=== PATIENT | female | born 1960 | race Caucasian/White ===

== ENCOUNTER → 2017-08-26 15:49 | Outpatient (CLI) | payer OTHER, SELFPAY ==
--- NOTE | 2017-08-26 15:56 | RAD_ITS ---
STUDY: X-RAY CHEST REASON FOR EXAM: Female, 57 years old. History of value fever. Abnormal breath sounds. TECHNIQUE: AP and lateral views of the chest. COMPARISON: Prior comparison studies are not available for review at this time. FINDINGS: There is a lucency in the left perihilar region measuring about 3.6 cm which could represent bulla or cavitary lesion. The lungs are otherwise clear. There is no demonstrated pleural abnormality. Normal size heart. Normal mediastinum and marcel. Normal visualized pulmonary arteries. Normal visualized aortic arch and descending thoracic aorta. There is minimal dextroscoliosis of the thoracic spine. Normal visualized ribs, clavicles, and shoulders. There is no demonstrated abnormality of the visualized soft tissue structures of the upper abdomen. RAD/Chest PA and Lateral IMPRESSION: Questionable left perihilar bulla or cavitary lesion. Comparison with previous examinations is recommended. Otherwise CT scan of the chest might be of further value. Electronically Signed: Freddy Domínguez MD at 14:22 EDT Tel , Service support ,
== END ==
PROVIDERS: Family Provider Family Medicine; PCP Family Medicine; Visit Provider Family Medicine
DX: J40 Bronchitis, not specified as acute or chronic (principal); Z86.19 Personal history of other infectious and parasitic diseases
CPT/HCPCS: 71046

== ENCOUNTER → 2017-10-19 16:29 | Outpatient (CLI) | payer OTHER, SELFPAY ==
--- NOTE | 2017-10-19 16:33 | CT_ITS ---
STUDY: CT CHEST WITH CONTRAST REASON FOR EXAM: Female, 57 years old. Cavitary lesion on chest radiograph RADIATION DOSAGE (If Supplied By Facility): CTDIvol = ( 7.72 ) mGy, DLP = ( 192.60 ) mGycm TECHNIQUE: Transaxial imaging was performed following intravenous administration of 100ML ml of Isovue 300 contrast material. Individualized dose optimization techniques were used for this CT. COMPARISON: None. FINDINGS: : TRACHEA, THYROID, ESOPHAGUS: No tracheomalacia,stricture or wall thickening. Thyroid and esophagus are normal CARDIOVASCULAR SYSTEM:The thoracic aorta is normal with no aneurysm, dissection or developmental anomalies. The pulmonary trunk and the left and right pulmonary arteries and their lobar and segmental branches do not show any abnormal and persistent filling defects in them. There is therefore no evidence of pulmonary embolism. The heart is normal. There are no venous anomalies JUANCARLOS AND LYMPH NODES: No hilar masses and no mediastinal, hilar, axillary or supraclavicular adenopathy LUNGS, LOW-ATTENUATION: No traction bronchiectasis, honeycombing,emphysema, lung cysts or cavitations LUNGS, HIGH ATTENUATION: No masses, ground glass opacities/consolidations or increased interstitial markings. A 1.2 cm nodule in the right lung base just above the right hemidiaphragm. LUNGS, MOSAIC/CRAZY PAVING: Not evident PLEURA AND CHEST WALL: No plural effusions, pneumothoraces,rib fractures or any osteolytic/osteoblastic changes . The soft tissue chest wall including the breasts are normal UPPER ABDOMEN: Unremarkable .. CT/Chest WITH Contrast IMPRESSION: The study is within normal limits with no cavitary lesions or lung cysts in the lungs especially the left side a 1.2 cm small nodule in the right lung base Electronically Signed: Tyrell Yung, at 6:55 EDT Tel , Service support ,
== END ==
PROVIDERS: Family Provider Family Medicine; PCP Family Medicine; Visit Provider Family Medicine
DX: R93.8 Abnormal findings on diagnostic imaging of other specified body structures (principal); Z86.19 Personal history of other infectious and parasitic diseases
CPT/HCPCS: 71260; Q9967

== ENCOUNTER → 2018-11-28 | Outpatient (CLI) | payer OTHER, SELFPAY ==
[2018-11-28 12:04] LABS: Absolute Lymphocyte Count 1.64 X10^3/uL (0.83-4.51); Absolute Neutrophil Count 2.2 X10^3/uL (2.0-7.7); Basophil# 0.05 X10^3/uL; Basophil% 1.1 % (0-1); Eosinophil# 0.11 X10^3/uL; Eosinophils% 2.5 % (0-5); Hemoglobin 12.7 g/dL (12.0-15.0); Lymphocyte # 1.64 X10^3/ul (4.0); Lymphocyte % 37.6 % (19-41); Mean Corpuscular Volume 90.5 fL (81-99); Mean Platelet Vol. 11.7 fl (6.2-12.0); Monocyte# 0.33 X10^3/uL; Monocyte% 7.6 % (0-10); NRBC Flagged by Analyzer 0 % (0-5); Neutrophil # 2.22 X10^3/uL (2.7-7.7); Platelet Count 187 K/mm3 (150-450); RBC Distribution Width CV 13.6 % (11.6-14.6); RBC Distribution Width SD 45.3 fl (35.1-43.9); Red Blood Count 4.53 M/mm3 (4.2-5.4); White Blood Count 4.4 K/mm3 (4.4-11.0)
[2018-11-28 12:20] LABS: Vitamin D,25 Hydroxy 15.3 ng/mL (29.95-100.01)
[2018-11-28 12:33] LABS: AST(SGOT) 21 U/L (15-37); Alanine Aminotransfer ALT/SGPT 23 U/L (13-56); Albumin, Serum 3.6 g/dL (3.2-5.0); Alkaline Phosphatase 96 U/L (45-117); Anion Gap 7 (5-15); BUN 13 mg/dL (7-18); BUN/Creat Ratio 20.9 RATIO (10-20); Calcium,Total 8.5 mg/dL (8.5-10.1); Chloride 110 mmol/L (98-107); Creatinine, Serum 0.62 mg/dL (0.55-1.02); EST Glomerular Filtration Rate 105 mL/min (>60); Est Glom Filt Rate - Afr Amer 127 mL/min (>60); Globulin 3.6 g/dL (2.2-4.2); Glucose 78 mg/dL (74-106); Potassium 3.8 mmol/L (3.5-5.1); Protein, Total 7.2 g/dL (6.4-8.2); Sodium Level 143 mmol/L (136-145); T4 Free Direct 1.03 ng/dL (0.76-1.46); Thyroid Stim Hormone (TSH) 1.43 uIU/mL (0.358-3.74)
== END | disposition home or self-care (01) ==
LOC: BFHLAB 10:12
PROVIDERS: Family Provider Family Medicine; PCP Family Medicine; Visit Provider Family Medicine
DX: M81.0 Age-related osteoporosis without current pathological fracture (principal); R91.1 Solitary pulmonary nodule
CPT/HCPCS: 36415; 80053; 82306; 84439; 84443; 85025

== ENCOUNTER → 2018-12-05 | Outpatient (CLI) | payer OTHER, SELFPAY ==
--- NOTE | 2018-12-05 10:59 | BD_ITS ---
STUDY: DUAL ENERGY X-RAY ABSORPTIOMETRY / DXA REASON FOR EXAM: Female, 58 years old. Early menopause. Loss of height. TECHNIQUE: Bone Mineral Density (BMD) measurements of lumbar spine and bilateral hips were obtained. COMPARISON: Comparison is made with prior examination dated June 30, 2016. FINDINGS: Lumbar Spine (L1-L4): g/cm2 (0.844) / T-score (-2.8) / Z-score (-1.8) Findings are suggestive of osteoporosis with a high fracture risk. Left Femur Total: g/cm2 (0.807) / T-score (-1.6) / Z-score (-0.8) Left Femoral Neck: g/cm2 (0.810) / T-score (-1.6) / Z-score (-0.5) Right Femur Total: g/cm2 (0.749) / T-score (-2.1) / Z-score (-1.3) Right Femoral Neck: g/cm2 (0.794) / T-score (-1.8) / Z-score (-0.6) The T-Scores on the most recent prior examination were: Lumbar Spine (L1-L4): There has been improvement of bone density since the previous examination. Left Femur Total: which represents a worsening of 5.3%. Right Femur Total: which represents a worsening of 6.8%. BD/Dexa Bone Density Study IMPRESSION: The patient is considered osteoporotic as outlined below according to World Kapil Organization (WHO) criteria with a high fracture risk. There has been worsening of bone density since the previous examination. Reference Information: The T-score is the number of standard deviations above or below the standard which is normal for young adults at their peak bone mineral density. The World Health Organization (WHO) interprets the T-scores as follows: Above -1 Normal bone density Between -1 and -2.5 Osteopenia Equal to / or below -2.5 Osteoporosis As a practical clinical guideline, osteopenia may be graded as follows: Mild -1 through -1.5 Moderate -1.6 through -2.0 Severe -2.1 through -2.4 The Z-score is the number of standard deviations above or below age-matched controls. A Z-score of less than -1.5 would be considered abnormal. References: 1. NIH Osteoporosis and Related Bone Diseases http://www.osteo.org 2. International Society for Clinical Densitometry http://www.iscd.org 3. National Osteoporosis Foundation http://www.nof.org Electronically Signed: Henry Davies, at 14:05 EDT , Service support ,
== END | disposition home or self-care (01) ==
PROVIDERS: Family Provider Family Medicine; PCP Family Medicine; Referring Provider Family Medicine; Visit Provider Family Medicine
DX: M81.0 Age-related osteoporosis without current pathological fracture (principal)
CPT/HCPCS: 77080

== ENCOUNTER → 2018-12-14 15:28 | Outpatient (CLI) | payer OTHER, SELFPAY ==
--- NOTE | 2018-12-14 15:32 | CT_ITS ---
STUDY: CT CHEST WITH CONTRAST REASON FOR EXAM: Female, 58 years old. Follow-up lung nodule history of [place] fever RADIATION DOSAGE (If Supplied By Facility): CTDIvol = ( 8.06 ) mGy, DLP = ( 220.35 ) mGycm TECHNIQUE: Transaxial imaging was performed following intravenous administration of 100mL IV Isovue 300. Multiplanar coronal and sagittal images were reformatted. Individualized dose optimization techniques were used for this CT. COMPARISON: CT chest October 09, 2017 FINDINGS: In the right lung base there is a stable circumscribed nodule measuring approximately 1.1 x 1.1 cm. This appears nodular on the axial views just above the right hemidiaphragm but appears more plaque-like or-like pleural thickening on the coronal views. There is no new visualize focal consolidation or pleural effusion. There is no demonstrated pleural abnormality. There is mild cardiac enlargement. Normal mediastinum. Normal hilar regions. Normal enhanced pulmonary arteries. Normal aorta arch and descending thoracic aorta. Normal osseous structures. There is no demonstrated abnormality of the visualized upper abdomen. CT/Chest WITH Contrast IMPRESSION: Stable right lung base pleural thickening and/or small nodule. Recommend follow-up based on clinical grounds or in 12 months to ensure stability. No evidence of acute focal infiltrate. Mild cardiomegaly. Electronically Signed: Princess Mitchell MD at 12:51 EDT Tel , Service support ,
== END ==
PROVIDERS: Family Provider Family Medicine; PCP Family Medicine; Referring Provider Family Medicine; Visit Provider Family Medicine
DX: R91.1 Solitary pulmonary nodule (principal)
CPT/HCPCS: 71260; Q9967

== ENCOUNTER → 2019-09-03 11:03 | Outpatient (CLI) | payer OTHER, SELFPAY ==
[2019-09-03 11:01] VITALS: BMI 23.1
--- NOTE | 2019-09-03 11:04 | RAD_ITS ---
STUDY: X-RAY - LEFT WRIST REASON FOR EXAM: Female, 59 years old. FALL. PAIN AND BRUISING TECHNIQUE: 3 view(s) of the wrist were obtained. COMPARISON: None. FINDINGS: Normal visualized distal radius and ulna. Normal radiocarpal articulation. Normal distal radioulnar articulation. Normal carpal bones. Normal carpal articulations. Normal carpometacarpal articulation of the thumb. Normal second through fifth carpometacarpal articulations. Normal visualized metacarpal bones. Soft tissue swelling. RAD/Wrist min 3 Views IMPRESSION: Soft tissue swelling. Electronically Signed: Henry Davies, at 11:30 EDT , Service support ,
== END ==
PROVIDERS: PCP Family Medicine; Referring Provider Physician Assistant Surgical; Visit Provider Physician Assistant Surgical
DX: S66.912A Strain of unspecified muscle, fascia and tendon at wrist and hand level, left hand, initial encounter (principal); X58.XXXA Exposure to other specified factors, initial encounter; Y93.9 Activity, unspecified; Y92.9 Unspecified place or not applicable; Y99.9 Unspecified external cause status
CPT/HCPCS: 73110

== ENCOUNTER → 2019-09-20 08:32 | Outpatient (CLI) | payer OTHER, SELFPAY ==
[2019-09-20 08:30] VITALS: BMI 23.1
--- NOTE | 2019-09-20 08:33 | RAD_ITS ---
STUDY: X-RAY - LEFT WRIST REASON FOR EXAM: Female, 59 years old. FOLLOW UP. STILL HAVING MEDIAL PAIN TECHNIQUE: 3 view(s) of the wrist were obtained. COMPARISON: None. FINDINGS: Normal visualized distal radius and ulna. Normal radiocarpal articulation. Normal distal radioulnar articulation. Normal carpal bones. Normal carpal articulations. Normal carpometacarpal articulation of the thumb. Normal second through fifth carpometacarpal articulations. Normal visualized metacarpal bones. The soft tissue structures are unremarkable. There is no demonstrated acute fracture. RAD/Wrist min 3 Views IMPRESSION: Continued negative x-ray examination of the wrist. Electronically Signed: Roel Fraser MD at 16:55 EDT , Service support ,
== END ==
PROVIDERS: PCP Family Medicine; Referring Provider Physician Assistant; Visit Provider Physician Assistant
DX: S66.912A Strain of unspecified muscle, fascia and tendon at wrist and hand level, left hand, initial encounter (principal)
CPT/HCPCS: 73110

== ENCOUNTER → 2020-08-11 | Outpatient (CLI) | payer BC, SELFPAY ==
[2019-10-04 08:07] VITALS: BMI 23.1
== END | disposition home or self-care (01) ==
PROVIDERS: PCP Family Medicine; Visit Provider Family Medicine
DX: R32 Unspecified urinary incontinence (principal)
CPT/HCPCS: 87086; 87088

== ENCOUNTER 2020-09-03 11:49 | Emergency (ER) | payer BC, SELFPAY ==
[2019-10-04 08:07] VITALS: BMI 23.1
[2020-09-03 11:50] VITALS: BP 159/91; PULSE 71; RESP 16; TEMP 36.4; O2SAT 97; BMI 23.6
[2020-09-03 12:04] VITALS: O2SAT 97
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
[2020-09-03] MEDS: Ibuprofen 600 MG Tablet PO (12:21)
[2020-09-03 13:19] VITALS: BP 158/79; PULSE 88; RESP 15; O2SAT 98
== END 2020-09-03 13:20 | disposition home or self-care (01) ==
PROVIDERS: Emergency Provider Emergency Medicine; PCP Family Medicine
DX: S40.022A Contusion of left upper arm, initial encounter (principal); S40.021A Contusion of right upper arm, initial encounter; S90.112A Contusion of left great toe without damage to nail, initial encounter; M54.6 Pain in thoracic spine; R07.81 Pleurodynia; V89.2XXA Person injured in unspecified motor-vehicle accident, traffic, initial encounter; Y93.89 Activity, other specified; Y92.410 Unspecified street and highway as the place of occurrence of the external cause; Y99.9 Unspecified external cause status; M19.90 Unspecified osteoarthritis, unspecified site; Z79.899 Other long term (current) drug therapy
CPT/HCPCS: 71046; 73630; 99283

== ENCOUNTER → 2020-09-12 10:57 | Outpatient (CLI) | payer BC, SELFPAY ==
[2020-09-03 11:50] VITALS: BMI 23.6
--- NOTE | 2020-09-12 11:01 | RAD_ITS ---
STUDY: X-RAY - THORACIC SPINE REASON FOR EXAM: Female, 60 years old. PAIN TECHNIQUE: 3 view(s) of the thoracic spine were obtained. COMPARISON: None. FINDINGS: Normal kyphosis of the thoracic spine. There is no substantial scoliosis. Normal thoracic vertebrae and endplates. Normal disc space heights. The soft tissue structures are unremarkable. RAD/Thoracic Spine 3 Views IMPRESSION: Normal x-ray examination of the thoracic spine. Electronically Signed: Jose De Souza MD at 12:32 EDT Tel , Service support ,
--- NOTE | 2020-09-12 11:01 | RAD_ITS ---
STUDY: X-RAY - UNILATERAL RIBS ( LEFT ) WITH CHEST REASON FOR EXAM: Female, 60 years old. PAIN TECHNIQUE - RIBS: 4 view(s) of the ribs. TECHNIQUE - CHEST: Single PA view of the chest. COMPARISON: 09/03/2020 FINDINGS - RIBS: Normal visualized ribs without a demonstrated fracture. FINDINGS - CHEST: The lungs are clear and expanded. There is no demonstrated pleural abnormality. Normal size heart. Normal mediastinum and marcel. Normal visualized pulmonary arteries. Normal visualized aortic arch and descending thoracic aorta. Normal visualized thoracic spine. Normal visualized ribs, clavicles, and shoulders. There is no demonstrated abnormality of the visualized soft tissue structures of the upper abdomen. RAD/Ribs Uni Min 3V w/PA Chest IMPRESSION: RIBS: Normal x-ray examination of the ribs. CHEST: Normal x-ray examination of the chest. Electronically Signed: Jose De Souza MD at 13:44 EDT Tel , Service support ,
--- NOTE | 2020-09-12 11:02 | RAD_ITS ---
STUDY: X-RAY - LEFT FOOT CLINICAL: Female, 60 years old. PAIN TECHNIQUE: 3 view(s) of the foot. COMPARISON: 09/03/2020 FINDINGS: Normal talus, calcaneus, and tarsal bones. Tiny plantar calcaneal enthesophyte. Normal visualized subtalar, talonavicular, calcaneocuboid, tarsal and tarsometatarsal articulations. Normal metatarsi. Normal metatarsophalangeal joint of the great toe. Normal tibial and fibular sesamoid bones. Normal interphalangeal joint of the great toe. Normal phalanges of the great toe. Normal second through fifth metatarsophalangeal joints. Normal interphalangeal joints and phalanges of the lesser toes. Calcification of the distal Achilles tendon suggestive of insertional Achilles tendinitis. RAD/Foot min 3 Views IMPRESSION: 1. No acute fracture or dislocation. 2. Suspect insertional Achilles tendinitis. Electronically Signed: Jose De Souza MD at 11:35 EDT Tel , Service support ,
== END ==
PROVIDERS: PCP Family Medicine; Referring Provider Family Medicine; Visit Provider Family Medicine
DX: M79.672 Pain in left foot (principal); R07.81 Pleurodynia
CPT/HCPCS: 71101; 72072; 73630

== ENCOUNTER → 2022-11-01 | Outpatient (CLI) | payer OTHER, SELFPAY ==
[2022-11-01 12:21] LABS: Absolute Lymphocyte Count 1.66 X10^3/uL (0.83-4.51); Absolute Neutrophil Count 2.2 X10^3/uL (2.0-7.7); Basophil# 0.03 X10^3/uL; Basophil% 0.7 % (0-1); Eosinophil# 0.11 X10^3/uL; Eosinophils% 2.6 % (0-5); Hematocrit 45.6 % (37-47); Hemoglobin 13.9 g/dL (12.0-15.0); Lymphocyte # 1.66 X10^3/ul (0.83-4.51); Mean Corp Hgb Conc 30.5 g/dL (32-36); Mean Corpuscular Hgb 28.4 pg (27.0-32.0); Mean Corpuscular Volume 93.1 fL (81-99); Mean Platelet Vol. 12.2 fl (6.2-12.0); Monocyte# 0.29 X10^3/uL; Monocyte% 6.8 % (0-10); NRBC Flagged by Analyzer 0 % (0-5); Neutrophil # 2.16 X10^3/uL (2.7-7.7); Neutrophil % 50.7 % (47-70); Platelet Count 213 K/mm3 (150-450); RBC Distribution Width CV 13.4 % (11.6-14.6); RBC Distribution Width SD 45.6 fl (35.1-43.9); White Blood Count 4.3 K/mm3 (4.4-11.0)
[2022-11-01 13:03] LABS: Vitamin D,25 Hydroxy 19.2 ng/mL
[2022-11-01 14:44] LABS: ALB/GLOB Ratio 0.9 RATIO (0.9-2.4); AST(SGOT) 18 U/L (15-37); Alanine Aminotransfer ALT/SGPT 18 U/L (13-56); Albumin, Serum 3.7 g/dL (3.2-5.0); Alkaline Phosphatase 92 U/L (45-117); Anion Gap 5 (5-15); BUN 12 mg/dL (7-18); BUN/Creat Ratio 20.2 RATIO (10-20); Chloride 108 mmol/L (98-107); Cholesterol 194 mg/dL (200); Creatinine, Serum 0.59 mg/dL (0.55-1.02); EST Glomerular Filtration Rate 109 mL/min (>60); Est Glom Filt Rate - Afr Amer 132 mL/min (>60); Globulin 3.9 g/dL (2.2-4.2); Glucose 88 mg/dL (74-106); High Density Lipoprotein 80 mg/dL; Potassium 3.5 mmol/L (3.5-5.1); Protein, Total 7.6 g/dL (6.4-8.2); Sodium Level 139 mmol/L (136-145); Thyroid Stim Hormone (TSH) 1.47 uIU/mL (0.358-3.74); Triglycerides 74 mg/dL; Very Low Density Lipoprotein 15 mg/dL (5-40)
== END | disposition home or self-care (01) ==
PROVIDERS: PCP Family Medicine; Visit Provider Family Medicine
DX: Z00.00 Encounter for general adult medical examination without abnormal findings (principal); M81.0 Age-related osteoporosis without current pathological fracture
CPT/HCPCS: 36415; 80053; 80061; 82306; 84443; 85025

== ENCOUNTER → 2022-11-11 | Outpatient (CLI) | payer OTHER, SELFPAY ==
--- NOTE | 2022-11-11 14:22 | BI_ITS ---
MAMMOGRAPHY - BILATERAL SCREENING REASON FOR EXAM: Female, 62 years old. Routine annual screening examination. PERTINENT HISTORY: Non-contributory. TECHNIQUE: Digital bilateral breast mir (3D mammographic acquisition) in the CC and MLO projections. 2-D mediolateral oblique (MLO) and craniocaudad (CC) views of both breasts were obtained. CAD: Full Field Digital Mammography with Computer Added Detection was performed. COMPARISON: Comparison is made with prior study dated April 29, 2016. FINDINGS: Breast Composition: The breasts are heterogeneously dense, which may obscure small masses. There are no dominant masses or suspicious calcifications. No other significant abnormalities are identified. There has been no significant change since the prior study. BI/SCRN MAMM (CAD)W/MIR BILAT IMPRESSION: Stable bilateral screening mammogram. Yearly follow-up mammogram recommended. (A) ASSESSMENT CATEGORY: BIRADS Category 1: Negative. A letter regarding these results will be sent to the patient by the facility within 30 days. Approximately 10% of breast cancers are not detected by mammography. A normal mammogram should not delay biopsy of a clinically suspicious abnormality. [id number] Electronically Signed: Henry Davies MD at 15:33 EDT ,
--- NOTE | 2022-11-11 14:27 | BD_ITS ---
STUDY: DUAL ENERGY X-RAY ABSORPTIOMETRY / DXA REASON FOR EXAM: Female, 62 years old. 733.00OsteoporosisBONE DENSITY REASON FOR EXAM TECHNIQUE: Bone Mineral Density (BMD) measurements of lumbar spine and bilateral hips were obtained. COMPARISON: Comparison is made with prior study December 05, 2018. FINDINGS: Lumbar Spine (L1-L4): g/cm2 (0.743) / T-score (-2.8) / Z-score (-1.2) Findings are suggestive of osteoporosis with a high fracture risk. Left Femur Total: g/cm2 (0.759) / T-score (-1.5) / Z-score (-0.5) Left Femoral Neck: g/cm2 (0.657) / T-score (-1.7) / Z-score (-0.4) Right Femur Total: g/cm2 (0.712) / T-score (-1.9) / Z-score (-0.8) Right Femoral Neck: g/cm2 (0.666) / T-score (-1.7) / Z-score (-0.3) The T-Scores on the most recent prior examination were: Lumbar Spine (L1-L4): There has been improvement of bone density since the previous examination. Left Femur Total: which represents an improvement of 1.6%. Right Femur Total: which represents an improvement of 3.1%. BD/Dexa Bone Density Study IMPRESSION: The patient is considered osteoporotic as outlined below according to World Kapil Organization (WHO) criteria with a high fracture risk. There has been improvement of bone density since the previous examination. Reference Information: The T-score is the number of standard deviations above or below the standard which is normal for young adults at their peak bone mineral density. The World Health Organization (WHO) interprets the T-scores as follows: Above -1 Normal bone density Between -1 and -2.5 Osteopenia Equal to / or below -2.5 Osteoporosis As a practical clinical guideline, osteopenia may be graded as follows: Mild -1 through -1.5 Moderate -1.6 through -2.0 Severe -2.1 through -2.4 The Z-score is the number of standard deviations above or below age-matched controls. A Z-score of less than -1.5 would be considered abnormal. References: 1. NIH Osteoporosis and Related Bone Diseases www osteo.org 2. International Society for Clinical Densitometry www iscd.org 3. National Osteoporosis Foundation www nof.org Electronically Signed: Henry Davies MD at 9:31 EDT ,
== END | disposition home or self-care (01) ==
PROVIDERS: PCP Family Medicine; Referring Provider Family Medicine; Visit Provider Family Medicine
DX: Z12.31 Encounter for screening mammogram for malignant neoplasm of breast (principal); M81.0 Age-related osteoporosis without current pathological fracture
CPT/HCPCS: 77063; 77067; 77080

== ENCOUNTER → 2023-12-13 | Outpatient (CLI) | payer OTHER, SELFPAY | END | disposition home or self-care (01) | LOC: MFPLAB 16:18 | PROVIDERS: PCP Family Medicine; Visit Provider Family Medicine | DX: R39.9 Unspecified symptoms and signs involving the genitourinary system (principal) | CPT/HCPCS: 87086; 87088; 87186 ==

== ENCOUNTER → 2023-12-15 | Outpatient (CLI) | payer OTHER, SELFPAY ==
[2023-12-15 10:05] LABS: Absolute Lymphocyte Count 1.79 X10^3/uL (0.83-4.51); Absolute Neutrophil Count 1.7 X10^3/uL (2.0-7.7); Basophil# 0.03 X10^3/uL; Basophil% 0.7 % (0-1); Eosinophil# 0.22 X10^3/uL; Eosinophils% 5.4 % (0-5); Hematocrit 41.6 % (37-47); Hemoglobin 12.6 g/dL (12.0-15.0); Lymphocyte # 1.79 X10^3/ul (0.83-4.51); Lymphocyte % 43.7 % (19-41); Mean Corp Hgb Conc 30.3 g/dL (32-36); Mean Corpuscular Hgb 27.9 pg (27.0-32.0); Mean Platelet Vol. 11.9 fl (6.2-12.0); Monocyte# 0.37 X10^3/uL; NRBC Flagged by Analyzer 0 % (0-5); Neutrophil # 1.68 X10^3/uL (2.7-7.7); Platelet Count 243 K/mm3 (150-450); RBC Distribution Width CV 13.8 % (11.6-14.6); RBC Distribution Width SD 46.7 fl (35.1-43.9); Red Blood Count 4.52 M/mm3 (4.2-5.4); White Blood Count 4.1 K/mm3 (4.4-11.0)
[2023-12-15 10:51] LABS: ALB/GLOB Ratio 0.9 RATIO (0.9-2.4); AST(SGOT) 18 U/L (15-37); Alanine Aminotransfer ALT/SGPT 22 U/L (13-56); Albumin, Serum 3.4 g/dL (3.2-5.0); Alkaline Phosphatase 81 U/L (45-117); Anion Gap 4 (5-15); BUN 11 mg/dL (7-18); BUN/Creat Ratio 20.2 RATIO (10-20); Calcium,Total 9.7 mg/dL (8.5-10.1); Chloride 108 mmol/L (98-107); Creatinine, Serum 0.54 mg/dL (0.55-1.02); EST Glomerular Filtration Rate 120 mL/min (>60); Est Glom Filt Rate - Afr Amer 145 mL/min (>60); Globulin 3.7 g/dL (2.2-4.2); Glucose 97 mg/dL (74-106); Potassium 3.7 mmol/L (3.5-5.1); Protein, Total 7.1 g/dL (6.4-8.2); Sodium Level 140 mmol/L (136-145)
== END | disposition home or self-care (01) ==
LOC: MFPLAB 08:22
PROVIDERS: PCP Family Medicine; Visit Provider Family Medicine
DX: E55.9 Vitamin D deficiency, unspecified (principal); J45.20 Mild intermittent asthma, uncomplicated
CPT/HCPCS: 36415; 80053; 82306; 85025

== ENCOUNTER → 2023-12-30 | Outpatient (CLI) | payer OTHER, SELFPAY | END | disposition home or self-care (01) | LOC: MFPLAB 16:04 | PROVIDERS: PCP Family Medicine; Visit Provider Family Medicine | DX: R39.9 Unspecified symptoms and signs involving the genitourinary system (principal) | CPT/HCPCS: 87086; 87088 ==

== ENCOUNTER → 2024-03-26 | Outpatient (CLI) | payer OTHER, SELFPAY ==
--- NOTE | 2024-03-26 17:18 | US_ITS ---
STUDY: RENAL ULTRASOUND - COMPLETE REASON FOR EXAM: Female, 64 years old. UTI TECHNIQUE: Ultrasound evaluation of the kidneys was performed with real-time and static roland-scale imaging. COMPARISON: None. FINDINGS: RIGHT KIDNEY: Normal location of the right kidney, which is normal in size. The right kidney measures 10.7 cm. There is a normal cortex of the right kidney. The renal cortex measures 0.8 cm. There is no right renal mass or cyst. There are no right renal calculi. There is mild hydronephrosis of the right kidney. DISTAL RIGHT URETER: There is non-visualization of the distal right ureter. There is no demonstrated right ureterovesical junction calculus. There is a visualized right ureteral jet. LEFT KIDNEY: Normal location of the left kidney, which is normal in size. The left kidney measures 10.2 cm. There is a normal cortex of the left kidney. The renal cortex measures 0.8 cm. There is no left renal mass or cyst. There are no left renal calculi. There is no left hydronephrosis. DISTAL LEFT URETER: There is non-visualization of the distal left ureter. There is no demonstrated left ureterovesical junction calculus. There is a visualized left ureteral jet. BLADDER: The distended urinary bladder has a volume of 35 ml. The empty urinary bladder has a volume of 6 ml. There is a normal wall thickness of the distended urinary bladder. There is no demonstrated mass within the urinary bladder. There are no demonstrated bladder calculi. US/Kidney and Bladder IMPRESSION: Mild right hydronephrosis. Electronically Signed: Jose De Souza MD at 13:02 EST ,
== END | disposition home or self-care (01) ==
PROVIDERS: PCP Family Medicine; Referring Provider Urology; Visit Provider Urology
DX: N39.0 Urinary tract infection, site not specified (principal)
CPT/HCPCS: 76770

== ENCOUNTER → 2024-07-31 | Outpatient (CLI) | payer OTHER, SELFPAY ==
--- NOTE | 2024-07-31 14:41 | US_ITS ---
PROCEDURE: KIDNEY AND BLADDER (USKI), 07/31/2024 REASON FOR EXAM: UTI F/U TECHNIQUE: Grayscale and color/spectral doppler ultrasound of the kidneys and bladder was performed. COMPARISON: 03/26/2024 FINDINGS: Right kidney: 10.7 cm in length. Fullness of the renal pelvis without eduardo caliectasis/hydronephrosis. No visualized mass or calculus. Left kidney: 10.6 cm in length. A cystic appearing lesion medial to the LEFT kidney measures 4.7 x 4.1 x 3.1 cm and is poorly visualized due to shadowing bowel gas but may reflect an exophytic cyst. No visualized calculus or hydronephrosis. Bladder: Underdistended and suboptimally evaluated. Mild bladder wall thickening to 4 mm versus underdistention. Estimated volume 16.5 mL. Estimated postvoid residual 2 mL. Other: Cholelithiasis. US/Kidney and Bladder IMPRESSION: 1. No hydronephrosis. 2. Bladder wall thickening versus underdistention. Correlate for cystitis. 3. Additional description as above. Reading Location: [id number]
== END | disposition home or self-care (01) ==
PROVIDERS: PCP Family Medicine; Referring Provider Urology; Visit Provider Urology
DX: N13.30 Unspecified hydronephrosis (principal); N39.0 Urinary tract infection, site not specified
CPT/HCPCS: 76770

== ENCOUNTER → 2024-09-12 | Outpatient (CLI) | payer OTHER, SELFPAY ==
[2024-09-12 17:40] LABS: Absolute Lymphocyte Count 1.83 X10^3/uL (0.83-4.51); Absolute Neutrophil Count 2.2 X10^3/uL (2.0-7.7); Basophil# 0.05 X10^3/uL; Eosinophil# 0.19 X10^3/uL; Hematocrit 40.3 % (37-47); Hemoglobin 12.8 g/dL (12.0-15.0); Lymphocyte # 1.83 X10^3/ul (0.83-4.51); Lymphocyte % 38.4 % (19-41); Mean Corp Hgb Conc 31.8 g/dL (32-36); Mean Corpuscular Hgb 28.8 pg (27.0-32.0); Mean Corpuscular Volume 90.6 fL (81-99); Mean Platelet Vol. 12.1 fl (6.2-12.0); Monocyte# 0.48 X10^3/uL; Monocyte% 10.1 % (0-10); NRBC Flagged by Analyzer 0 % (0-5); Neutrophil # 2.21 X10^3/uL (2.7-7.7); Neutrophil % 46.3 % (47-70); Platelet Count 223 K/mm3 (150-450); RBC Distribution Width CV 13.7 % (11.6-14.6); RBC Distribution Width SD 45.5 fl (35.1-43.9); Red Blood Count 4.45 M/mm3 (4.2-5.4); White Blood Count 4.8 K/mm3 (4.4-11.0)
[2024-09-12 18:49] LABS: ALB/GLOB Ratio 1.4 RATIO (0.9-2.4); AST(SGOT) 31 U/L (<=31); Alanine Aminotransfer ALT/SGPT 20 U/L (<=34); Albumin, Serum 4.2 g/dL (3.4-4.8); Alkaline Phosphatase 114 U/L (35-104); Anion Gap 12 (5-15); BUN 11 mg/dL (4-19); BUN/Creat Ratio 17.8 RATIO (10-20); Calcium,Total 9.5 mg/dL (7.6-11.0); Carbon Dioxide 25.1 mmol/L (21.0-32.0); Chloride 104 mmol/L (98-108); Creatinine, Serum 0.63 mg/dL (0.70-1.20); EST Glomerular Filtration Rate 100 (>60); Glucose 103 mg/dL (70-99); Potassium 3.5 mmol/L (3.3-5.1); Protein, Total 7.1 g/dL (5.9-8.4); Sodium Level 141 mmol/L (133-145); Total Bilirubin 0.55 mg/dL (0.00-1.30); Vitamin D,25 Hydroxy 56.4 ng/mL (30-100)
[2024-09-14 13:44] LABS: Hemoglobin A1c 5.5 % (<=5.6)
== END | disposition home or self-care (01) ==
LOC: MFPLAB 16:15
PROVIDERS: PCP Family Medicine; Referring Provider Family Medicine; Visit Provider Family Medicine
DX: M81.0 Age-related osteoporosis without current pathological fracture (principal); R73.09 Other abnormal glucose; J45.20 Mild intermittent asthma, uncomplicated
CPT/HCPCS: 36415; 80053; 82306; 83036; 85025

== ENCOUNTER → 2025-02-06 | Outpatient (CLI) | payer OTHER, SELFPAY ==
--- NOTE | 2025-02-06 12:41 | RAD_ITS ---
PROCEDURE: RAD/Chest PA and Lateral
== END | disposition home or self-care (01) ==
LOC: MTLAB 12:39 → MTRAD 12:41
PROVIDERS: PCP Family Medicine; Referring Provider Family Medicine; Visit Provider Family Medicine
DX: J45.901 Unspecified asthma with (acute) exacerbation (principal)
CPT/HCPCS: 71046

== ENCOUNTER 2025-02-12 09:26 | Emergency (ER) | payer OTHER, SELFPAY ==
[2025-02-12] VITALS (8 sets, daily range): BP systolic 113–129; BP diastolic 67–78; PULSE 67–81; RESP 15–20; TEMP 36.4–36.6; O2SAT 95–100; BMI 24.4
--- NOTE | 2025-02-12 10:00 | ED.VIS.DYS ---
HPI History of Present Illness Chief Complaint: Asthma Narrative Narrative: Patient shortness of breath that has been getting worse over the past month. Patient states this feels similar to prior asthma exacerbations. Patient states she has been using her albuterol aerosols every 4 hours with some relief. Patient states that her primary care physician prescribed her Zithromax and some prednisone. Patient states she has taken these with no improvement. Patient admits to a cough but denies any sputum production. Patient states she started with some rhinorrhea today. Patient denies any fevers or chills. Patient admits to some pain in her chest. Patient describes it as pressure. Patient states is over the substernal area. PE Risk Factors: Negative for Cancer, OCP + Smoking + > 35, Prior DVT or PE, Recent immobilization, Recent surgery or Recent travel [facility] Medical History Osteoporosis Chest pain Migraines Anemia Stomach ulcer Arthritis Home Medications Medication Instructions Recorded Last Taken Type calcium carbonate (Calcium 600) 600 mg PO DAILY 12/15/22 Unknown History cholecalciferol (vitamin D3) 1,250 1,250 mcg PO QWEEK 12/15/22 Unknown History mcg (50,000 unit) capsule turmeric 400 mg capsule mg PO .QD 09/21/23 Unknown History solifenacin 5 mg tablet 5 mg PO QDAY #90 tabs 12/17/24 Unknown Rx albuterol sulfate 90 mcg/actuation inhalation 02/11/25 Unknown History aerosol inhaler ascorbate calcium (vitamin C) 500 500 mg PO QDAY 02/11/25 Unknown History mg tablet cranberry extract 500 mg capsule 500 mg PO BID 02/11/25 Unknown History prednisone 20 mg tablet 20 mg PO QDAY 02/11/25 Unknown History albuterol sulfate 2.5 mg/3 mL 2.5 mg (3 mL) inhalation Q4H PRN 02/12/25 Unknown Rx (0.083 %) solution for nebulization #25 vials Allergy/AdvReac Type Severity Reaction Status Date / Time codeine Allergy Severe Vomiting Verified 02/12/25 09:27 Anesthetics - Drea Type- AdvReac Severe Other Verified 02/12/25 09:27 Parabens (anesthesia - anesthetics) Surgical History History of hysterectomy Hx of knee surgery History of shoulder surgery H/O wrist surgery Social History household members: spouse and children current occupational status: employed Smoking Status: Never smoker alcohol intake: never substance use type: does not use ROS ROS ED Constitutional Constitutional ED: Denies chills or fever(s) Eyes Eyes: Denies blurry vision or change in vision ENT ENT ED: Reports rhinorrhea; Denies sore throat Cardiovascular Cardiovascular: Reports chest pain; Denies palpitations Respiratory/Chest Respiratory/Chest: Reports cough and dyspnea Gastrointestinal Gastrointestinal: Denies nausea or vomiting Genitourinary Genitourinary ED: Denies dysuria or hematuria Musculoskeletal Musculoskeletal: Denies back pain or neck pain Integumentary Denies abscess or rash Neurologic Neurologic: Denies headache(s) or weakness Allergic/Immunologic Allergic/Immunologic ED: Denies mouth swelling or urticaria EXAM Physical Exam Const Vital Signs: 02/12/25 09:26 02/12/25 09:56 02/12/25 10:09 Temperature 97.5 F L 97.9 F Temperature Source Oral Oral Pulse Rate 78 67 81 Respiratory Rate 16 16 19 H Respiratory Effort Respiratory Depth Respiratory Pattern Normal Blood Pressure 129/78 H 127/74 H Blood Pressure Mean 95 91 Pulse Ox 98 99 Oxygen Delivery Method Room Air 02/12/25 10:11 02/12/25 11:15 02/12/25 12:23 Temperature Temperature Source Pulse Rate 77 76 Respiratory Rate 20 H Respiratory Effort Short of Breath Labored Respiratory Depth Shallow Respiratory Pattern Normal Blood Pressure 128/74 H 113/69 Blood Pressure Mean 92 83 Pulse Ox 100 97 Oxygen Delivery Method Room Air Room Air 02/12/25 13:13 02/12/25 13:20 Temperature 97.9 F Temperature Source Pulse Rate 76 70 Respiratory Rate 20 H 15 Respiratory Effort Respiratory Depth Respiratory Pattern Blood Pressure 113/69 116/67 Blood Pressure Mean 83 83 Pulse Ox 97 95 Oxygen Delivery Method Room Air Positive well nourished and well developed General Appearance ED: well developed and NAD HEENT Reports moist mucous membranes atraumatic Neck supple, no meningeal signs and no JVD Resp normal respiratory effort Auscultation: wheezes expiratory wheezes and throughout Cardio regular rate and regular rhythm GI non-tender and non-distended Palpation: soft Neuro oriented x3, CN's II-XII intact bilaterally and no sensory deficits noted [place] Coma Scale: document GCS findings Spontaneous Obeys Commands Oriented 15 Sensorium / Orientation: alert Speech: speech normal Motor Exam: strength 5/5 throughout Psych mental status grossly normal MDM MDM MDM Narrative Medical decision making narrative: Differential includes pneumonia, bronchitis, asthma exacerbation, COPD, cardiac dysrhythmia, cardiac ischemia, and electrolyte abnormality. Chest x-ray will be obtained to assess for pneumonia or bronchitis. CBC will be obtained to assess for leukocytosis and anemia. Basic metabolic profile will be obtained to assess for electrolyte abnormality and renal function. EKG will be obtained to assess for cardiac dysrhythmia and cardiac ischemia. High-sensitivity troponin will be obtained to assess for cardiac ischemia. Lab Data Attestation: I reviewed the patient's lab results. Lab results narrative: CBC was reviewed and was within normal patient metabolic profile was reviewed. Potassium slightly low at 3.2. The remainder is within normal limits. High-sensitivity troponin was reviewed and was normal at 7. 2-hour repeat high-sensitivity troponin was reviewed and was less than 6. Labs: Laboratory Results - last 24 hr 02/12/25 02/12/25 10:08 12:20 WBC 7.9 RBC 4.77 Hgb 13.6 Hct 43.3 MCV 90.8 MCH 28.5 MCHC 31.4 L RDW Std Deviation 47.1 H RDW Coeff of Dilia 14.1 Plt Count 222 MPV 11.2 Immature Gran % (Auto) 0.300 Neut % (Auto) 46.1 L Lymph % (Auto) 35.2 [place] % (Auto) 7.6 Eos % (Auto) 9.8 H Baso % (Auto) 1.0 Absolute Neuts (auto) 3.6 Absolute Lymphs (auto) 2.77 Nucleated RBC % 0 Sodium 143 Potassium 3.2 L Chloride 106 Carbon Dioxide 26.7 Anion Gap 10 BUN 9 Creatinine 0.69 L Estim Creat Clear Calc 87.21 Est GFR (MDRD) Non-Af 98 BUN/Creatinine Ratio 13.1 Glucose 91 Calcium 9.0 Troponin T High Sens 7 Troponin T Hi Sens 2 Hr < 6 Radiography Chest X-Ray - ED: 2 View, Read by ED Physician, Read by Radiologist and No Acute Disease Diagnostic Testing: Clinical Impression(s) from Imaging Studies Chest X-Ray 02/12/25 10:35 IMPRESSION: Subsegmental atelectasis. Reading Location: [facility] PA and lateral chest x-ray was obtained. There are 2 views. On my independent interpretation, lung garcia are clear. There is normal cardiac silhouette. Bony thorax is normal. There is no acute process noted. Radiologist also interpreted the x-ray and agrees. EKG Initial EKG: Attestation: I personally reviewed and interpreted this EKG as follows: Interpretation: Sinus Rhythm (74) and Non-Specific ST Changes Comments: EKG was obtained. On my independent interpretation, shows normal sinus rhythm with a rate of 74. KS interval was normal at 158 ms. QRS interval was normal at 92 ms. QTc interval was 481 ms. [place] was normal. There are nonspecific ST-T wave changes. Prior EKG tracings: not available for review Prior: No Prior Treatment and Re-Evaluation :: Patient was given a DuoNeb aerosol here. Patient was given a dose of Solu-Medrol. Patient was feeling better on reevaluation. Patient was advised of her findings. Patient states she would do better with a home aerosol machine. Case was discussed with social work. She was able to arrange for this. Patient was instructed to follow-up with her primary care physician in 5 to 7 days. Patient was instructed continue her prednisone as prescribed. Patient understood and was agreeable with the plan. All questions were answered. The patient requires a nebulizer due to asthma and is prescribed to use albuterol with the nebulizer. Discharge Plan Triage Chief Complaint: Asthma ED Provider: Jayme Nieves Dx/Rx/DC Orders Clinical Impression: Asthma exacerbation Instructions: ED Asthma, Acute (Adult) Prescriptions: New albuterol sulfate 2.5 mg /3 mL (0.083 %) solution for nebulization 2.5 mg inhalation Q4H PRN Qty: 25 0RF Rx Instructions: Use q4 hours and PRN for wheezing No Action cholecalciferol (vitamin D3) 1,250 mcg (50,000 unit) capsule 1,250 mcg PO QWEEK calcium carbonate [Calcium 600] 600 mg calcium (1,500 mg) tablet 600 mg PO DAILY turmeric 400 mg capsule PO .QD prednisone 20 mg tablet 20 mg PO QDAY ascorbate calcium (vitamin C) 500 mg tablet 500 mg PO QDAY albuterol sulfate 90 mcg/actuation HFA aerosol inhaler inhalation cranberry extract 500 mg capsule 500 mg PO BID Rx Instructions: administer with meals solifenacin 5 mg tablet 5 mg PO QDAY Qty: 90 3RF Primary Care Provider: Matthew Merino Referrals: Matthew Merino MD [Primary Care Provider, [facility]] - 5-7 Days Print Language: Ghanaian Disposition Disposition: Home, Self Care
--- NOTE | 2025-02-12 10:06 | EKG12_ITS ---
Test Reason : SOB Blood Pressure : */* mmHG Vent. Rate : 74 BPM Atrial Rate : 74 BPM P-R Int : 158 ms QRS Dur : 92 ms QT Int : 434 ms P-R-T Axes : 73 50 29 degrees QTcB Int : 481 ms Normal sinus rhythm Nonspecific ST abnormality QTcB >= 480 msec Abnormal ECG No previous ECGs available Confirmed by Marty Hernandez ([id number]), visual effects editor MATEUSZ PATEL ([id number]) on 02/13/2025 1:53:53 PM Referred By: Confirmed By: Marty Hernandez
[2025-02-12 10:14] LABS: Hematocrit 43.3 % (37-47); Hemoglobin 13.6 g/dL (12.0-15.0); Immature Granulocytes Count 0.020 X10^3/uL (0.0-0.0); Mean Corp Hgb Conc 31.4 g/dL (32-36); Mean Corpuscular Volume 90.8 fL (81-99); Mean Platelet Vol. 11.2 fl (6.2-12.0); NRBC Flagged by Analyzer 0 % (0-5); Platelet Count 222 K/mm3 (150-450); RBC Distribution Width CV 14.1 % (11.6-14.6); RBC Distribution Width SD 47.1 fl (35.1-43.9); Red Blood Count 4.77 M/mm3 (4.2-5.4); White Blood Count 7.9 K/mm3 (4.4-11.0)
--- NOTE | 2025-02-12 10:35 | RAD_ITS ---
PROCEDURE: CHEST PA AND LATERAL 02/12/2025 REASON FOR EXAM: DYSPNEA TECHNIQUE: Procedure Code: RADCXR Modality: DX Procedure: CHEST PA AND LATERAL COMPARISON: February 06, 2025 September 12, 2020 FINDINGS: Hardware: EKG leads Heart: The heart size is normal. Mediastinum: The mediastinal contour is unremarkable. Lungs: Platelike atelectasis at the lung bases posteriorly. Lungs are otherwise clear. No pneumothorax or pleural effusion. Bones: The bones are unremarkable. RAD/Chest PA and Lateral IMPRESSION: Subsegmental atelectasis. Reading Location: [id number]
[2025-02-12 10:45] LABS: Troponin T High Sensitivity 7 ng/L (<=14)
[2025-02-12 10:48] LABS: Anion Gap 10 (5-15); BUN 9 mg/dL (4-19); BUN/Creat Ratio 13.1 RATIO (10-20); Calcium,Total 9.0 mg/dL (7.6-11.0); Carbon Dioxide 26.7 mmol/L (21.0-32.0); Chloride 106 mmol/L (98-108); Estimated Creatinine Clearance 87.21 ml/min (50-250); Glucose 91 mg/dL (70-99); Potassium 3.2 mmol/L (3.3-5.1)
[2025-02-12] MEDS: Potassium Chloride Oral Tablet 20 MEQ 40 MEQ PO (12:16)
[2025-02-12 12:54] LABS: Troponin T High Sens 2 HR < 6 ng/L (<=14)
--- NOTE | 2025-02-12 14:31 | CM.ED ---
Social Work SW was asked by ED physician for referral for a nebulizer. [facility] [place] via Roddy Glaser [place] [facility] [place] and will provide patient with nebulizer. Patient notified, no further needs at this time. Val Agee, TREASURY CONSULTANT, BOTTOM WORKER
== END 2025-02-12 16:19 | disposition home or self-care (01) ==
PROVIDERS: Emergency Provider Emergency Medicine; PCP Family Medicine; Visit Provider Emergency Medicine
DX: J45.901 Unspecified asthma with (acute) exacerbation (principal); Z90.710 Acquired absence of both cervix and uterus
CPT/HCPCS: 71046; 80048; 84484; 85025; 93005; 94640; 96374; 99285; A4216